=== PATIENT | male | born 1990 | race Caucasian/White ===

== ENCOUNTER 2020-12-02 15:05 | Emergency (ER) | payer BC, SELFPAY ==
[2020-12-02 15:08] VITALS: BP 170/90; PULSE 140; RESP 16; TEMP 36.8; O2SAT 99
[2020-12-02 15:21] VITALS: BP 170/90; PULSE 120; RESP 20; TEMP 36.8; O2SAT 99; BMI 28.3
[2020-12-02] MEDS: Amoxicillin/Potassium Clav 875 MG TABLET PO (15:46)
[2020-12-02] MEDS: Lidocaine HCl 1 % MPF 5 ML VIAL SUBCUT ×2 (15:47)
--- NOTE | 2020-12-02 17:33 | ED.WOUNDLAC ---
HPI - Wound/Laceration General Chief Complaint: Wound/Laceration Stated Complaint: dog bite Time Seen by Provider: 12/02/20 15:25 History of Present Illness HPI narrative: Patient was bit by his own dog on the left side of the upper lip just prior to arrival, dog is up-to-date on rabies shots, patient is not up-to-date on his tetanus shot, no other injury Related Data Previous Rx's Medication Instructions Recorded amoxicillin-pot clavulanate 1 tab PO BID 5 Days #10 tab 12/02/20 [Augmentin] Allergies Allergy/AdvReac Type Severity Reaction Status Date / Time No Known Allergies Allergy Verified 12/02/20 15:33 Review of Systems Review of Systems: Positive for left upper lip dog bite laceration Negatives are no fever no chills no dizziness no weakness no confusion no difficulty breathing or swallowing no swelling no numbness or weakness PMFSH Past Medical History Source: nursing notes reviewed Social History Social History Alcohol intake: never Smoked in Last 30 Days: No Use of substances other than those prescribed or required for medical reasons: No Advance Directives: No Advance Directives Information Provided: Yes Physical Exam Vital Signs: Vital Signs: Last Vital Signs Temp 98.3 F 12/02/20 15:21 Pulse 120 H 12/02/20 15:21 Resp 20 12/02/20 15:21 BP 170/90 H 12/02/20 15:21 Pulse Ox 99 12/02/20 15:21 Body Mass Index 28.3 General appearance is no acute distress The left upper lip has a vertical 2 cm gaping laceration that crosses the vermilion border and enters the mucosa it is not through and through, there is no inner lip laceration Adjacent to it is a 0.5 cm laceration in the lip Neck is supple Respiratory no distress Extremities full range of motion x4 Neuro no focal deficit Course Course Course Narrative: The 2 lacerations the 2 cm gaping laceration in the smaller 0.5 cm laceration were cleansed and irrigated with normal saline No foreign bodies were identified Anesthesia was 3 cc infraorbital block on the left side with good anesthesia The larger laceration was closed with 3 internal Vicryl Rapide stitches 5 0 for the mucosal surfaces and 360 nylon sutures for the normal skin above the lip The smaller lateral 0.5 cm slightly gaping laceration was closed with 3 5.0 Vicryl Rapide stitches Bleeding was controlled Patient was given prophylactic Augmentin and a tetanus shot and has dog was up-to-date no rabies prophylaxis Discharge Plan Discharge Clinical Impression: Laceration Patient Disposition: Home, Self-Care Additional Instructions: black stitches need to come out in 5 days in upper part of lip white stitches are absorbable and dont need ro be removed, but can be trimmed in 5 days if they bother you return any time any concerns you got a teanus shot and antibiotic to help prevent infection blood pressure was high so get home cuff and keep a recoed of it and follow with primary doctor Prescriptions: New amoxicillin-pot clavulanate [Augmentin] 875-125 mg tablet 1 tab PO BID 5 Days Qty: 10 RF: 0 Interventions: ED Discharge Assessment Last Done: 12/02/20 17:34 Discharge Date/Time: 12/02/20 17:55
== END 2020-12-02 17:55 | disposition home or self-care (01) ==
PROVIDERS: Emergency Provider Emergency Medicine
DX: S01.551A Open bite of lip, initial encounter (principal); W54.0XXA Bitten by dog, initial encounter; Y93.9 Activity, unspecified; Y92.019 Unspecified place in single-family (private) house as the place of occurrence of the external cause; Y99.9 Unspecified external cause status
CPT/HCPCS: 12051; 90471; 90715; 99284